=== PATIENT | female | born 1935 | race Caucasian/White ===

== ENCOUNTER 2018-02-28 13:47 | Emergency (ER) | payer SELFPAY ==
[~2018-02-28] VITALS: Ht 160 cm; Wt 61.0 kg
[2018-02-28 13:53] VITALS: BP 93/47
== END 2018-02-28 17:25 | disposition left against medical advice (07) ==
LOC: EDBD 13:47 → ER 14:55
DX: R55 Syncope and collapse (principal); Z53.21 Procedure and treatment not carried out due to patient leaving prior to being seen by health care provider